=== PATIENT | female | born 1960 | race Caucasian/White ===

== ENCOUNTER 2024-12-14 11:09 | Outpatient (CLI) | payer OTHER, SELFPAY ==
[2024-12-14 11:54] LABS: Basophils Absolute Auto 0.1 K/mm3 (0.0-0.1); Eosinophils Absolute Auto 0.1 K/mm3 (0-0.3); Eosinophils Percent Auto 2.3 % (0-4.4); Hematocrit 41.8 % (37.0-47.0); Immature Granulocyte Absolute 0.01 K/mm3 (0.00-0.031); Immature Granulocyte Percent A 0.2 % (0-0.5); Lymphocytes Percent Auto 31.4 % (18.3-44.2); Mean Corpuscular HGB Conc 33.5 g/dl (32-36); Mean Corpuscular Hemoglobin 28.6 pg (26-34); Mean Corpuscular Volume 85.3 fl (80-100); Mean Platelet Volume 11.1 fl (7.4-10.4); Monocytes Absolute Auto 0.4 K/mm3 (0.1-0.6); Monocytes Percent Auto 6.8 % (2.6-8.5); Neutrophils Absolute Auto 3.3 K/mm3 (1.3-6.7); Neutrophils Percent Auto 58.3 % (45.5-73.1); Platelet Count Result 208 k/mm3 (150-375); Red Cell Distribution Width 12.7 % (11.5-14.5); White Blood Count 5.7 K/mm3 (4.5-10.0)
--- OUTSIDE RECORDS SUMMARY | 2024-12-14 12:01 | XMS_ITS | Clinical Summary ---
Author Organization [facility] Address [address] [place] [id number] Care Team Providers Care Steward/Stewardess Tourist Class Name Role Phone Charley Teixeira DO Primary Care Provider [phone] Allergies Active Allergy Reactions Criticality Noted Date Comments Codeine Hallucinations 10/28/2022 Medications Ozempic, 1 MG/DOSE, 4 MG/3ML Solution Pen-injector 2 Active albuterol 108 (90 Base) MCG/ACT inhalerIndicati ons:Acute cough Inhale 2 puffs into the lungs every 4 hours as needed for Shortness of Breath. 1 each 2 Active Promethazine-DM 6.25-15 MG/5ML SolutionIndicat ions:Acute cough Take 5 mLs by mouth every 4 to 6 hours as needed (cough). 473 mL 2 Active Active Problems No known active problems Surgical History Surgery Date Site/Laterality Comments HYSTERECTOMY Medical History Medical History Date Comments Diabetes mellitus (CMD) Social History Tobacco Use Types Packs/Day Years Used Date Smoking Tobacco: Never Smokeless Tobacco: Never Tobacco Cessation:Counseling Given: Not Answered Interpersonal Safety Answer Date Record ed RETIRE In the past year, hav e you ever been physically hurt, threatened, controlled or made to feel afraid by someone close to you? No 10/28/2022 RETIRE Currently, are you in a relationship where you are being physically hurt, threatened, controlled or made to feel afraid? 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 Gender Identity Not on file Sexual Orientation Not on file Obstetrics History Last Filed Vital Signs Vital Sign Reading Time Taken Comments Blood Pressure 142/63 10/28/2022 10:55 PM CDT Pulse 84 10/28/2022 10:55 PM CDT Temperature 37.4 C (99.4 F) 10/28/2022 7:58 PM CDT Respiratory Rate 20 10/28/2022 10:55 PM CDT Oxygen Saturation 94% 10/28/2022 10:55 PM CDT Inhaled Oxygen Concentration - - Weight 95.3 kg (210 lb 3.2 oz) 10/28/2022 7:58 P M CDT Height 165.1 cm (5' 5 ) 10/28/2022 7:58 PM CDT Body Mass Index 34.98 10/28/2022 7:58 PM CDT Plan of Treatment Health Maintenance Due Date Last Done Comments Depression Screening 1973 DTaP/Tdap/Td Vaccine (1 - Tdap) 1980 Breast Cancer Screening 2001 CT Colonography 2006 Cologuard 2006 Colonoscopy 2006 Colorectal Cancer Screening 2006 Fecal Occult Blood 2006 Sigmoidoscopy 2006 Pneumococcal Vaccine 50+ (1 of 1 - PCV) 2011 Shingles Vaccine (1 of 2) 2011 COVID-19 Vaccine (2 - 2023-2 5 season) 2024 09/05/2021 Influenza Vaccine (Season Ended) 2025 09/05/2021, 09/09/2019 Respiratory Syncytial Virus (RSV) Vaccine 60+ (1 - 1-dose 75+ series) 2036 HPV Vaccine Aged Out No longer eligi ble based on patient's age to complete this topic Hepatitis A Vaccine Aged Out No longe r eligible based on patient's age to complete this topic Hepatitis B Vaccine (For Physician/APC Discussion) Aged Out No longer elig ible based on patient's age to complete this topic Meningococcal Serogroup B Vaccine Aged Out No longer eligible b ased on patient's age to complete this topic Meningococcal Vaccine Aged Out No candido marley eligible based on patient's age to complete this topic Insurance [employer] Care Teams Steward/Stewardess Tourist Class Relationship Specialty Start Date End Date Chalrey Teixeira DO [id number] [id number] PCP - General Family Practice 10/28/22
--- OUTSIDE RECORDS SUMMARY | 2024-12-14 12:02 | XMS_ITS | Referral Summary ---
Author Organization 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
[2024-12-14 12:07] LABS: Alanine Aminotransferase 24 U/L (6-35); Albumin Level 4.6 g/dL (3.5-5.1); Alkaline Phosphatase 49 U/L (38-126); Anion Gap 7 mmol/L (4-12); Aspartate Amino Transferase 24 U/L (14-36); Bilirubin,Total 0.6 mg/dL (0.2-1.3); Blood Urea Nitrogen 20 mg/dL (7-17); Calcium 9.5 mg/dL (8.4-10.2); Carbon Dioxide 30 mmol/L (22-30); Chloride 101 mmol/L (98-107); Cholesterol 179 mg/dL (0-200); Estimated Glomerular Filt Rate > 60; Glucose 105 mg/dL (65-110); HDL Direct 57 mg/dL; Magnesium 1.8 mg/dL (1.6-2.3); Potassium 4.2 mmol/L (3.4-5.0); Sodium 138 mmol/L (137-145); Triglycerides 111 mg/dL (<150)
[2024-12-14 12:12] LABS: Hemoglobin A1C 5.9 % (<5.7)
[2024-12-14 12:17] LABS: Creatinine Urine 150.1 mg/dL
[2024-12-14 12:18] LABS: LDL Cholesterol Direct 79 mg/dL
[2024-12-14 12:21] LABS: MALB Creatinine Ratio 4.7 mg/g (0-30)
[2024-12-14 12:32] LABS: Vitamin D 25 Hydroxy 37.7 ng/mL
== END 2024-12-14 11:10 | disposition home or self-care (01) ==
LOC: ANHLAB 11:14
PROVIDERS: PCP Family Medicine; Visit Provider Family Medicine
DX: Z00.00 Encounter for general adult medical examination without abnormal findings (principal); E11.9 Type 2 diabetes mellitus without complications; E66.9 Obesity, unspecified
CPT/HCPCS: 36415; 80053; 80061; 82043; 82172; 82306; 82607; 83036; 83735; 85025

== ENCOUNTER 2025-02-17 09:14 | Outpatient (CLI) | payer OTHER, SELFPAY ==
--- OUTSIDE RECORDS SUMMARY | 2025-02-17 09:23 | XMS_ITS | Clinical Summary ---
Author Organization [facility] Address [address] [place] [address] Care Team Providers Care [employer] Name Role Phone Tomas Alexander MD Primary Care Provider [phone] Allergies Active Allergy Reactions Criticality Noted Date Comments Codeine Hallucinations 10/28/2022 Medications albuterol 108 (90 Base) MCG/ACT inhalerIndication s:Acute cough Inhale 2 puffs into the lungs every 4 hours as needed for Shortness of Breath. 1 each 07/28/20 22 Active Promethazine-DM 6.25-15 MG/5ML SolutionIndicatio ns:Acute cough Take 5 mLs by mouth every 4 to 6 hours as needed (cough). 473 mL 07/28/20 22 Active rosuvastatin (CRESTOR) 10 MG tablet Take 10 mg by mouth daily. 11/26/19 25 Active Mounjaro 5 MG/0.5ML Solution Auto-injector ADMINISTER 5 MG UNDER THE SKIN WEEKLY 12/30/19 25 Active hydrOXYzine (ATARAX) 25 MG tablet Take 25 mg by mouth 4 times daily as needed. 12/29/19 25 Active meloxicam (MOBIC) 7.5 MG tablet TAKE 1 TABLET BY MOUTH EVERY DAY NEEDED FOR PAIN OR INFLAMMATION 11/09/19 25 Active hydroCHLOROthiazi de 12.5 MG tablet Take 12.5 mg by mouth daily. Active DULoxetine (CYMBALTA) 30 MG capsule Take 30 mg by mouth daily. Active ondansetron (ZOFRAN ODT) [address] 1 tablet onto the tongue every 6 hours. 10 tablet 01/27/20 25 Active ketorolac (TORADOL) 10 MG tablet Take 1 tablet by mouth every 6 hours as needed for Pain. 20 tablet 01/27/20 25 Active Ozempic, 1 MG/DOSE, 4 MG/3ML Solution Pen-injector 07/27/20 22 025 Discontinu ed(Formula ry Change) cephalexin 500 MG tablet Take 1 tablet by mouth 4 times daily for 7 days. 28 tablet 01/27/20 25 025 Active Problems No known active problems Encounters Date Type Department Care Team Description 01/26/2025 7:38 AM CDT - 01/26/2025 10:04 AM CDT Emergency [facility] Emergency Services [address] [place] [address] Rajendra Schuler, Ewa Silver gerentological physiotherapist pancreatitis, unspecified complication status, unspecified pancreatitis type (CMD) (Primary Dx); Urinary tract infection with hematuria, site unspecified Discharge Disposition: Home or Self Care 01/26/2025 Travel from Last 3 Months Immunizations Immunization Administration Dates Next Due Influenza, MDCK, quadrivalent 09/09/2019 Influenza, split virus, quadrivalent 09/05/2021 Surgical History Surgery Date Site/Laterality Comments HYSTERECTOMY CHOLECYSTECTOMY FRACTURE SURGERY KNEE SURGERY Right Medical History Medical History Date Comments Diabetes mellitus (CMD) Kidney stones High cholesterol Fatty liver Fracture Social History Tobacco Use Types Packs/Day Years Used Date Smoking Tobacco: Never Smokeless Tobacco: Never Tobacco Cessation:Counseling Given: Not Answered Inadequate Housing Answer Date Recorded Social Determinants: Housing (Overall Score Help er) 0 07/28/2022 Interpersonal Safety Answer Date Record ed How often does anyone, tonja erazo family and friends, physically hurt you? Never 01/26/2025 How often does anyone, tonja erazo family and friends, insult or talk down to you? Never 01/26/2025 How often does anyone, tonja erazo family and friends, threaten you with harm? Never 01/26/2025 How often does anyone, tonja erazo family and friends, scream or curse at you? 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 Gender Identity Not on file Sexual Orientation Not on file Obstetrics History Last Filed Vital Signs Vital Sign Reading Time Taken Comments Blood Pressure 130/62 01/26/2025 10:02 AM CDT Pulse 83 01/26/2025 10:02 AM CDT Temperature 36.9 C (98.5 F) 01/26/2025 7:47 AM CDT Respiratory Rate 20 01/26/2025 10:0 2 AM CDT Oxygen Saturation 95% 01/26/2025 10: 02 AM CDT Inhaled Oxygen Concentration - - Weight 95.2 kg (209 lb 14.4 oz) 01/26/2025 7:43 AM CDT Height 165.1 cm (5' 5) 01/26/2025 7:43 AM CDT Body Mass Index 34.93 01/26/2025 7:43 AM CDT Plan of Treatment Health Maintenance Due Date Last Done Comments Depression Screening 1973 DTaP/Tdap/Td Vaccine (1 - Tdap) 1980 Breast Cancer Screening 2001 CT Colonography 2006 Cologuard 2006 Colonoscopy 2006 Colorectal Cancer Screening 2006 Fecal Occult Blood 2006 Sigmoidoscopy 2006 Pneumococcal Vaccine 50+ (1 of 1 - PCV) 2011 Shingles Vaccine (1 of 2) 2011 Hepatitis C Screening 2012 COVID-19 Vaccine (2 - 2023-2 5 season) 2024 09/05/2021 Influenza Vaccine (#1) 2025 2, 09/09/2019 Respiratory Syncytial Virus (RSV) Vaccine 60+ [...] on patient's age to complete this topic Procedures Procedure Name Priority Date/Time Associated Diagnosis Comments US LIVER GALLBLADDER PANCREAS (RUQ) STAT 01/26/2025 9:[address] ABDOMEN PELVIS W CONTRAST STAT 01/26/2025 8:30 AM CDT RAINBOW DRAW STAT 01/26/2025 8:04 AM CDT CREATININE - POINT OF CARE Routine 01/26/2025 8:03 AM CDT URINE, BACTERIAL CULTURE STAT 025 8:03 AM CDT CBC WITH AUTOMATED DIFFERENTIAL (PERFORMABLE ONLY) STAT 01/26/2025 8:03 AM CDT PROCALCITONIN STAT 01/26/2025 8:03 AM CDT LIPASE STAT 01/26/2025 8:03 AM CDT COMPREHENSIVE METABOLIC PANEL STAT 01/26/2025 8:03 AM CDT CBC WITH DIFFERENTIAL STAT 01/26/2025 8:03 AM CDT URINALYSIS & REFLEX MICROSCOPY WITH CULTURE IF INDICATED STAT 01/26/2025 8:03 AM CDT ELECTROCARDIOGRAM 12-LEAD STAT 2024 8:02 AM CDT from Last 3 Months Results * US LIVER GALLBLADDER PANCREAS (RUQ) (01/26/2025 9:25 AM CDT) Anatomical Region Laterality Modality Abdomen Ultrasound 01/26/2025 9:34 AM CDT Impressions 01/26/2025 9:36 AM CDT IMPRESSION: Status post cholecystectomy. Study is grossly negative. Electronically Signed by: Jack Oswald MD Signed on: 01/26/2025 9:36 AM Created on Workstation ID: [id number] Signed on Workstation ID: [id number] Narrative 01/26/2025 9:36 AM CDT EXAM: US LIVER GALLBLADDER PANCREAS (RUQ) DATE OF EXAM: 01/26/2025 9:02 AM. COMPARISON: None. CLINICAL INFORMATION: epigastric pain. FINDINGS: Pancreas is not well-visualized secondary to a patient body habitus and overlying bowel gas. The inferior vena cava is visualized and is patent. The liver measures 13.5 cm. It is grossly unremarkable. Gallbladder is not present consistent with previous cholecystectomy. Common duct measures 3.6 mm. Visualized portions of the right kidney are unremarkable. Portal venous flow is towards the liver. Procedure Note Jack Oswald MD - 01/26/2025 EXAM: US LIVER GALLBLADDER PANCREAS (RUQ) DATE OF EXAM: 01/26/2025 9:02 AM. COMPARISON: None. CLINICAL INFORMATION: epigastric pain. FINDINGS: Pancreas is not well-visualized secondary to a patient body habitus and overlying bowel gas. The inferior vena cava is visualized and is patent. The liver measures 13.5 cm. It is grossly unremarkable. Gallbladder is not present consistent with previous cholecystectomy. Common duct measures 3.6 mm. Visualized portions of the right kidney are unremarkable. Portal venous flow is towards the liver. IMPRESSION: Status post cholecystectomy. Study is grossly negative. Electronically Signed by: Jack Oswald MD Signed on: 01/26/2025 9:36 AM Created on Workstation ID: [id number] Signed on Workstation ID: [id number] us Rajendra Schuler DO IMG US PROCEDURES Final Re sult * CT ABDOMEN PELVIS W CONTRAST - IV contrast only (01/26/2025 8:30 AM CDT) Anatomical Region Laterality Modality Abdomen, Pelvis, Abdomen/Pelvis Computed Tomography 01/26/2025 8:37 AM CDT Impressions 01/26/2025 8:41 AM CDT IMPRESSION: Findings suggest pancreatitis. Electronically Signed by: Jack Oswald MD Signed on: 01/26/2025 8:41 AM Created on Workstation ID: [id number] Signed on Workstation ID: [id number] Narrative 01/26/2025 8:41 AM CDT EXAM: CT ABDOMEN PELVIS W CONTRAST DATE OF EXAM: 01/26/2025 8:08 AM. COMPARISON: CTA chest at 10/28/2022. CLINICAL INFORMATION: epigastric pain, hx of lap michael. CONTRAST: 100 mL Omnipaque 300 injected intravenously. FINDINGS: HEART/LUNGS: The heart is normal in size. Lung bases appear unremarkable. LIVER: Unremarkable. GALLBLADDER: Status post cholecystectomy. SPLEEN: Occasional calcified granuloma. PANCREAS: Soft tissue prominence of the pancreatic head with interstitial strandy change within the adjacent peripancreatic fat. Findings suggest pancreatitis. Correlate clinically. No pancreatic ductal dilatation evident.. ADRENAL GLANDS: No adrenal lesions evident. KIDNEYS: The kidneys demonstrate no mass or hydronephrosis. No calculi are apparent. No ureteral calculus is apparent. ABDOMINAL AORTA: The abdominal aorta is normal in caliber. No paraaortic or pericaval lymphadenopathy is evident. PELVIS: Images of the pelvis demonstrate the urinary bladder to be mostly empty.. No bowel obstructive pattern. Moderate stool evident within the colon. Mild diverticulosis without gross acute diverticulitis APPENDIX: The appendix is visualized and is normal. No pericecal inflammatory process evident. Procedure Note Jack Oswald MD - 01/26/2025 EXAM: CT ABDOMEN PELVIS W CONTRAST DATE OF EXAM: 01/26/2025 8:08 AM. COMPARISON: CTA chest at 10/28/2022. CLINICAL INFORMATION: epigastric pain, hx of lap michael. CONTRAST: 100 mL Omnipaque 300 injected intravenously. FINDINGS: HEART/LUNGS: The heart is normal in size. Lung bases appearunremarkable. LIVER: Unremarkable. GALLBLADDER: Status post cholecystectomy. SPLEEN: Occasional calcified granuloma. PANCREAS: Soft tissue prominence of the pancreatic head withinterstitial strandy change within the adjacent peripancreatic fat. Findings suggest pancreatitis. Correlate clinically. No pancreatic ductal dilatation evident.. ADRENAL GLANDS: No adrenal lesions evident. KIDNEYS: The kidneys demonstrate no mass or hydronephrosis. No calculiare apparent. No ureteral calculus is apparent. ABDOMINAL AORTA: The abdominal aorta is normal in caliber. No paraaorticor pericaval lymphadenopathy is evident. PELVIS: Images of the pelvis demonstrate the urinary bladder to bemostly empty.. No bowel obstructive pattern. Moderate stool evident within the colon. Mild diverticulosis without gross acute diverticulitis APPENDIX: The appendix is visualized and is normal. No pericecal inflammatory process evident. IMPRESSION: Findings suggest pancreatitis. Electronically Signed by: Jack Oswald MD Signed on: 01/26/2025 8:41 AM Created on Workstation ID: [id number] Signed on Workstation ID: [id number] Rajendra Schuler DO IMG CT PROCEDURES Final Re sult * Marx Top Tube (01/26/2025 8:04 AM CDT) Extra Tube Hold for Add Ons 01/26/2025 5:01 PM CDT [facility] Blood VENOUS BLOOD SPECIMEN / Unknown New IV Insertion / Unknown 01/26/2025 8:04 AM CDT 01/26/2025 8:09 AM CDT Rajendra Schuler DO BKR LAB BLOOD ORDERABLES F inal Result Performing Organization Address City/[facility]/ZIP Co de Phone Number [address] [address] * Light Blue Top (01/26/2025 8:04 AM CDT) Extra Tube Hold for Add Ons 01/26/2025 5:01 PM CDT [facility] Blood VENOUS BLOOD SPECIMEN / Unknown New IV Insertion / Unknown 01/26/2025 8:04 AM CDT 01/26/2025 8:08 AM CDT Rajendra Schuler DO BKR LAB BLOOD ORDERABLES F inal Result [address] [address] * (ABNORMAL) Urinalysis & Reflex Microscopy With Culture If Indicated (01/26/2025 8:03 AM CDT) COLOR, URINALYSIS Straw 025 8:17 AM CDT [facility] APPEARANCE, URINALYSIS Clear 01/26/2025 8:17 AM CDT [facility] GLUCOSE, URINALYSIS Negative Negative mg/dL 01/26/2025 8:17 AM [facility] BILIRUBIN, URINALYSIS Negative Negative 01/26/2025 8:17 AM [facility] KETONES, URINALYSIS 40(A) Negative mg/dL 01/26/2025 8:17 AM [facility] SPECIFIC GRAVITY, URINALYSIS 1.018 1.005 - 1.030 01/26/2025 8:17 AM [facility] Comment:Measured by refracto metry OCCULT BLOOD, URINALYSIS Negative Negative 01/26/2025 8:17 AM [facility] PH, URINALYSIS 8.5(H) 5.0 - 7.0 01/26/2025 8:17 AM [facility] PROTEIN, URINALYSIS Negative Negative mg/dL 01/26/2025 8:17 AM [facility] UROBILINOGEN, URINALYSIS 0.2 0.2, 1.0 mg/dL 01/26/2025 8:17 AM [facility] NITRITE, URINALYSIS Negative Negative 01/26/2025 8:17 AM [facility] LEUKOCYTE ESTERASE, URINALYSIS Moderate(A) Negative 01/26/2025 8:17 AM [facility] SQUAMOUS EPITHELIAL, URINALYSIS 1 to 5 None Seen, 1 to 5 /hpf 01/26/2025 8:17 AM [facility] ERYTHROCYTES, URINALYSIS 11 to 25(A) None Seen, 1 to 2 /hpf 01/26/2025 8:17 AM [facility] LEUKOCYTES, URINALYSIS 11 to 25(A) None Seen, 1 to 5 /hpf 01/26/2025 8:17 AM [facility] BACTERIA, URINALYSIS Few(A) None Seen /hpf 01/26/2025 8:17 AM [facility] HYALINE CASTS, URINALYSIS None Seen None Seen, 1 to 5 /lpf 01/26/2025 8:17 AM [facility] MUCUS Present 01/26/2025 8:17 AM [facility] Urine URINE SPECIMEN OBTAINED BY CLEAN CATCH PROCEDURE / Unknown 01/26/2025 8:03 AM [facility] 01/26/2025 8:08 AM CDT Rajendra Schuler DO BKR LAB URINE ORDERABLES F inal Result [address] [address] * Creatinine (POC) (01/26/2025 8:03 AM CDT) CREATININE - POINT OF CARE 0.80 0.51 - 0.95 mg/dL 01/26/2025 8:03 AM CDT [facility] GLOMERULAR FILTRATION RATE - POINT OF CARE 83 >=60 01/26/2025 8:03 AM CDT [facility] Comment:eGFR results = or >6 0 mL/min/1.73m2 = Normal kidney function. Estimated GFR calculated using the CKD-EPI-R (2020) equation that does not include race in the creatinine calculation. Blood BLOOD SPECIMEN / Unknown 01/26/2025 8:03 AM CDT 01/26/2025 8:07 AM CDT Rajendra Schuler DO BKR LAB PT OF CARE TST UNS OLC Final Result Performing Organization Address City/[facility]/ZIP Co de Phone Number [address] [address] * (ABNORMAL) CBC with Automated Differential (performable only) (01/26/2025 8:03 AM CDT) WBC 13.0(H) 4.2 - 11.0 K/mcL 01/26/2025 8:11 AM T [facility] RBC 5.22(H) 4.00 - 5.20 mil/mcL 01/26/2025 8:11 AM T [facility] HGB 14.7 12.0 - 15.5 g/dL 01/26/2025 8:11 AM [facility] HCT 43.7 36.0 - 46.5 % 01/26/2025 8:11 AM T [facility] MCV 83.7 78.0 - 100.0 fl 01/26/2025 8:11 AM T [facility] MCH 28.2 26.0 - 34.0 pg 01/26/2025 8:11 AM [facility] MCHC 33.6 32.0 - 36.5 g/dL 01/26/2025 8:11 AM [facility] RDW-CV 12.4 11.0 - 15.0 % 01/26/2025 8:11 AM [facility] RDW-SD 37.4(L) 39.0 - 50.0 fL 01/26/2025 8:11 AM [facility] PLT 264 140 - 450 K/[facility] 01/26/2025 8:11 AM [facility] NRBC 0 <=0 /100 WBC 01/26/2025 8:11 AM [facility] Neutrophil, Percent 78 % 01/26/2025 8:11 AM [facility] Lymphocytes, Percent 13 % 01/26/2025 8:11 AM [facility] Casey, Percent 7 % 01/26/2025 8:11 AM [facility] Eosinophils, Percent 1 % 01/26/2025 8:11 AM [facility] Basophils, Percent 0 % 01/26/2025 8:11 AM [facility] Immature Granulocytes 1 % 01/26/2025 8:11 AM [facility] Absolute Neutrophils 10.3(H) 1.8 - 7.7 K/[facility] 01/26/2025 8:11 AM [facility] Absolute Lymphocytes 1.6 1.0 - 4.0 K/[facility] 01/26/2025 8:11 AM [facility] Absolute Monocytes 0.9 0.3 - 0.9 K/[facility] 01/26/2025 8:11 AM [facility] Absolute Eosinophils 0.1 0.0 - 0.5 K/[facility] 01/26/2025 8:11 AM [facility] Absolute Basophils 0.1 0.0 - 0.3 K/[facility] 01/26/2025 8:11 AM [facility] Absolute Immature Granulocytes 0.1 0.0 - 0.2 K/[facility] 01/26/2025 8:11 AM [facility] Blood VENOUS BLOOD SPECIMEN / Unknown New IV Insertion / Unknown 01/26/2025 8:03 AM CDT 01/26/2025 8:08 AM CDT Narrative [facility] - 01/26/2025 8:11 AM CDT This is an appended report. These results have been appended to a previously verified report. Rajendra Schuler DO BKR LAB BLOOD ORDERABLES F inal Result Performing Organization Address City/[facility]/ZIP Co de Phone Number [address] [address] * Urine, Bacterial Culture (01/26/2025 8:03 AM CDT) Urine, Bacterial Culture 10,000 - 50,000 CFU/mL Mixed bacterial nora with no predominating type 01/28/2025 2:36 PM CDT [facility] Urine URINE SPECIMEN OBTAINED BY CLEAN CATCH PROCEDURE / Unknown 01/26/2025 8:03 AM CDT 01/26/2025 8:08 AM CDT Rajendra MIGUELR LAB MICRO-GEN ORDERABL ES Final Result Performing Organization Address [facility] Co de Phone Number [address] * (ABNORMAL) Lipase (01/26/2025 8:03 AM CDT) Lipase 80.2(H) 15 - 77 Units/L 01/26/2025 8:48 AM CDT [facility] Blood VENOUS BLOOD SPECIMEN / Unknown New IV Insertion / Unknown 01/26/2025 8:03 AM CDT 01/26/2025 8:08 AM CDT Rajendra Schuler DO BKR LAB BLOOD ORDERABLES F inal Result [address] [address] * (ABNORMAL) Comprehensive Metabolic Panel (01/26/2025 8:03 AM CDT) Fasting Status 01/26/2025 8:48 AM [facility] Sodium 137 135 - 145 mmol/L 01/26/2025 8:48 AM [facility] Potassium 3.9 3.4 - 5.1 mmol/L 01/26/2025 8:48 AM [facility] Chloride 99 97 - 110 mmol/L 01/26/2025 8:48 AM [facility] Carbon Dioxide 27 21 - 32 mmol/L 01/26/2025 8:48 AM [facility] Anion Gap 15 7 - 19 mmol/L 01/26/2025 8:48 AM [facility] Glucose 162(H) 70 - 99 mg/dL 01/26/2025 8:48 AM [facility] BUN 13 6 - 20 mg/dL 01/26/2025 8:48 AM [facility] Creatinine 0.70 0.51 - 0.95 mg/dL 01/26/2025 8:48 AM [facility] Glomerular Filtration Rate >90 >=60 01/26/2025 8:48 AM [facility] Comment:eGFR results = or >6 0 mL/min/1.73m2 = Normal kidney function. Estimated GFR calculated using the CKD-EPI-R (2020) equation that does not include race in the creatinine calculation. BUN/Cr 19 7 - 25 01/26/2025 8:48 AM [facility] Calcium 9.9 8.4 - 10.2 mg/dL 01/26/2025 8:48 AM [facility] Bilirubin, Total 1.0 0.2 - 1.0 mg/dL 01/26/2025 8:48 AM [facility] GOT/AST 16 <=37 Units/L 01/26/2025 8:48 AM [facility] GPT/ALT 24 <64 Units/L 01/26/2025 8:48 AM [facility] Alkaline Phosphatase 76 45 - 117 Units/L 01/26/2025 8:48 AM [facility] Albumin 4.1 3.4 - 5.0 g/dL 01/26/2025 8:48 AM [facility] Protein, Total 8.1 6.4 - 8.2 g/dL 01/26/2025 8:48 AM CDT [facility] Globulin 4.0 2.0 - 4.0 g/dL 01/26/2025 8:48 AM [facility] A/G Ratio 1.0 1.0 - 2.4 01/26/2025 8:48 AM [facility] Blood VENOUS BLOOD SPECIMEN / Unknown New IV Insertion / Unknown 01/26/2025 8:03 AM CDT 01/26/2025 8:08 AM CDT us Rajendra Schuler DO BKR LAB BLOOD ORDERABLES F inal Result [facility] [address] [place] [address] * Procalcitonin (01/26/2025 8:03 AM CDT) Procalcitonin 0.06 <0.10 ng/mL 01/26/2025 8:48 AM [facility] Comment: Bacterial Sepsis: <0.5 ng/mL: Sepsis not likely. Localized bacterial infection possible. 0.5 - 2 ng/mL: Sepsis or other conditions possible >2.0 ng/mL: High risk of sepsis/septic shock NOTE: If bacterial sepsis is of high clinical suspicion but PCT<2 ng/mL, consider recheck PCT 6-24 hours after initial test. Lower Respiratory Tract Infection (LRTI): <0.1 ng/mL: Bacterial infection highly unlikely 0.1 - 0.25 ng/mL: Bacterial infection unlikely 0.26 - 0.5 ng/mL: Bacterial infection likely > 0.5 ng/mL: Bacterial infection highly likely NOTE: Patients with advanced CKD or medical/surgical trauma may have elevated baseline PCT (>0.5 ng/mL) in the absence of bacterial infection. If bacterial infection is suspected, consider repeat PCT in 2 to 4 days to guide de-escalation or discontinuation of antibiotic therapy. Higher reference range cutoffs may be appropriate for patients <3 days old. Falsely decreased PCT results are seen when Total Bilirubin is >33.7 mg/dL. Blood VENOUS BLOOD SPECIMEN / Unknown New IV Insertion / Unknown 01/26/2025 8:03 AM CDT 01/26/2025 8:08 AM CDT us Rajendra Schuler DO BKR LAB BLOOD ORDERABLES F inal Result [facility] [address] [place] [address] * Electrocardiogram 12-Lead (01/26/2025 8:02 AM CDT) Systolic Blood Pressure 158 MUSE Diastolic Blood Pressure 79 MUSE Ventricular Rate EKG/Min (BPM) 73 MUSE Atrial Rate (BPM) 73 MUSE RI-Interval (MSEC) 140 MUSE QRS-Interval (MSEC) 80 MUSE QT-Interval (MSEC) 388 MUSE QTc 427 MUSE P Osborne (Degrees) 26 MUSE R Osborne (Degrees) -12 MUSE T Osborne (Degrees) 26 MUSE REPORT TEXT Normal sinus rhythm Normal ECG When compared with ECG of 28-OCT-2022 20:01, No significant change was found Confirmed by RAJENDRA SCHULER DO ([id number]), newspaper photo editor Jesi Ayala ([id number]) on 01/26/2025 9:00:02 AM MUSE 01/26/2025 8:02 AM CDT us Rajendra Schuler DO ECG ORDERABLES Final Resu lt MUSE from Last 3 Months Insurance [employer] [facility] Address: [facility] [id number] [place] [address] Care Teams [employer] Relationship Specialty Start Date End Date Tomas Alexander MD [address] [phone] PCP - General Family Practice 01/27/25
[2025-02-17 10:08] LABS: Add Urine Microscopic? NO; Appearance Urine Clear (Clear); Glucose Urine UA 3+ mg/dL (Negative); Leukocyte Esterase Ur Negative LEU/UL (Negative); Nitrate Urine Negative (Negative); Specific Grav Ur 1.038 (1.001-1.035)
== END 2025-02-17 09:15 | disposition home or self-care (01) ==
LOC: ANHLAB 09:16
PROVIDERS: PCP Family Medicine; Visit Provider Family Medicine
DX: N39.0 Urinary tract infection, site not specified (principal)
CPT/HCPCS: 81003; 87086